=== PATIENT | female | born 1950 | race African-American/Black ===

== ENCOUNTER 2019-11-21 09:07 | Inpatient (IN) | payer MEDICARE, BC ==
[~2019-11-21] VITALS: Ht 162.6 cm; Wt 69.9 kg
[2019-11-21 11:39] LABS: HEMATOCRIT. 39.6 % (36.0-48.0); HEMOGLOBIN. 13.3 g/dL (12.0-16.0); LYMPHOCYTES % 29.8 % (20.0-50.0); MEAN CORPUSCULAR HEMOGLOBIN 30.4 pg (28.0-32.0); MEAN CORPUSCULAR VOLUME 90.3 fL (81.0-99.0); MEAN PLATELET VOLUME 8.2 fl (7.4-10.4); MONOCYTES % 5.3 % (2.0-8.0); NEUTROPHILS % 60.9 % (40.0-76.0); PLATELET 204 x1000/uL (130-400); RED BLOOD CELL COUNT 4.39 mill/uL (4.2-5.4); RED CELL DISTRIBUTION WIDTH 15.1 % (11.6-14.6)
[2019-11-21 11:47] LABS: CHLORIDE 107 mEq/L (98-107)
[2019-11-21 12:12] LABS: PROTHROMBIN TIME 10.4 sec (9.6-11.0)
[2019-11-21] MEDS ORDERED: IOHEXOL-300 100 ML BOTTLE ONE (13:08)
[2019-11-21 13:26] LABS: CLARITY URINE CLEAR (CLEAR); COLOR URINE YELLOW (YELLOW); KETONES URINE NEGATIVE (NEGATIVE); LEUKOCYTE ESTERASE URINE NEGATIVE (NEGATIVE); NITRITE URINE NEGATIVE (NEGATIVE); OCCULT BLOOD URINE NEGATIVE (NEGATIVE); PH URINE 6.5 (4.5-8.0); PROTEIN URINE 2+ (NEGATIVE); SPECIFIC GRAVITY URINE 1.019 (1.005-1.030); UROBILINOGEN URINE 0.2 E.U./dL (0.2-1.0)
[2019-11-21] MEDS ORDERED: ACETAMINOPHEN 325MG TABLET PO PRN (17:15)
[2019-11-21] MEDS ORDERED: MAGNESIUM/ALUMINUM HYDROXIDE/SIMETHICONE 30ML UDC PO PRN (17:15)
[2019-11-21] MEDS ORDERED: BISACODYL 10MG SUPP PR ONE (17:15)
[2019-11-21] MEDS ORDERED: ONDANSETRON HCL 4MG/2ML INJ IV PRN (17:15)
[2019-11-21] MEDS ORDERED: CLONIDINE 0.1MG TABLET PO PRN (17:15)
[2019-11-21] MEDS ORDERED: GUAIFENESIN 200MG/10ML SUGAR FREE UDC PO PRN (17:15)
[2019-11-21] MEDS ORDERED: DEXTROSE 50% WATER 50ML SYRINGE IV PRN (17:15)
[2019-11-21] MEDS ORDERED: MVI, ADULT NO.1 10 ML, FOLIC ACID 1 MG, THIAMINE HCL 100 MG in SODIUM CHLORIDE 0.9% 1,0... IV SCH ×4 (17:50)
[2019-11-21 22:30] VITALS: BP 147/65
[2019-11-21] MEDS ORDERED: HYDR25TA PO (22:32)
[2019-11-21] MEDS ORDERED: ATOR40TA70 PO (22:32)
[2019-11-21] MEDS ORDERED: METF-414 PO (22:32)
[2019-11-21] MEDS ORDERED: LISI10TA5 PO (22:32)
[2019-11-21] MEDS ORDERED: ASPI-1158 PO (22:32)
[2019-11-21] MEDS: BLOOD SUGAR DIAGNOSTIC STRIP TEST SCH (22:50)
[2019-11-21] MEDS: INSULIN LISPRO 100 UNITS/ML SUBCUT SCH (22:50)
[2019-11-21] MEDS: SODIUM CHLORIDE 0.9% INJ 3ML FLUSH IVF SCH (22:51)
[2019-11-21 23:00] VITALS: BP 167/65
[2019-11-22] VITALS: BP 146/67
[2019-11-22 04:00] VITALS: BP 154/65
[2019-11-22] MEDS: BLOOD SUGAR DIAGNOSTIC STRIP TEST SCH ×2 (05:46→12:40)
[2019-11-22] MEDS: SODIUM CHLORIDE 0.9% INJ 3ML FLUSH IVF SCH ×2 (05:48→14:00)
[2019-11-22 08:00] VITALS: BP 160/68
[2019-11-22] MEDS: INSULIN LISPRO 100 UNITS/ML SUBCUT SCH ×2 (08:10→13:10)
[2019-11-22] MEDS: CARBAMAZEPINE 100MG TABLET CHEW PO SCH ×3 (08:48→17:00)
[2019-11-22] MEDS ORDERED: ENOXAPARIN 40MG/0.4ML SYR SUBCUT SCH (09:00)
[2019-11-22] MEDS ORDERED: BENAZEPRIL 10MG TABLET PO SCH (09:00)
[2019-11-22 12:00] VITALS: BP 145/58
[2019-11-22 16:00] VITALS: BP 134/68
== END 2019-11-22 17:19 | disposition home or self-care (01) | DRG 392 ==
LOC: ER 09:07 → EDBEDREQ 14:39 → EDBEDREQSVC 14:39 → ENRESERV 20:26 → 7WST 22:07 → UNDODISIN 11-22 17:19
PROVIDERS: ADMIT Internal Medicine; ATTEND Internal Medicine
DX: R10.31 Right lower quadrant pain (principal); M87.9 Osteonecrosis, unspecified; M16.10 Unilateral primary osteoarthritis, unspecified hip; E11.9 Type 2 diabetes mellitus without complications; F17.200 Nicotine dependence, unspecified, uncomplicated; G40.909 Epilepsy, unspecified, not intractable, without status epilepticus; I10 Essential (primary) hypertension; M41.9 Scoliosis, unspecified; Z82.49 Family history of ischemic heart disease and other diseases of the circulatory system; Z83.3 Family history of diabetes mellitus; Z79.899 Other long term (current) drug therapy; Z79.82 Long term (current) use of aspirin
CPT/HCPCS: 36415; 73502; 74177; 80053; 81003; 82962; 83036; 85025; 96365; 97162; 99285; J1650; J3411; J3490; J7030; Q9967